=== PATIENT | male | born 1980 | race Caucasian/White ===

== ENCOUNTER 2018-07-02 13:52 | Emergency (ER) | payer OTHER ==
[2018-07-02 14:03] VITALS: BP 122/88; PULSE 85; TEMP 98.3; BMI 37.5
[2018-07-02] MEDS ORDERED: CYCLOBENZAPRINE HCL 10 MG TABLET (FP) PO ONE (14:34)
[2018-07-02] MEDS ORDERED: IBUPROFEN 600 MG TABLET (FP) PO ONE ×2 (14:36→14:39)
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
[2018-07-02] MEDS ORDERED: CYCLOBENZAPRINE HCL 10 MG TABLET (FP) ONE (14:39)
== END 2018-07-02 16:09 | disposition home or self-care (01) ==
LOC: JERFT 13:52
DX: S89.82XA Other specified injuries of left lower leg, initial encounter (principal); M25.572 Pain in left ankle and joints of left foot; M62.838 Other muscle spasm; M79.652 Pain in left thigh; M54.5 Low back pain; V03.10XA Pedestrian on foot injured in collision with car, pick-up truck or van in traffic accident, initial encounter; Y92.414 Local residential or business street as the place of occurrence of the external cause; Y93.89 Activity, other specified; Y99.8 Other external cause status
CPT/HCPCS: 73610-TC-LT-FY; 93971-TC; 99281-25

== ENCOUNTER 2018-11-01 11:10 | Emergency (ER) | payer OTHER ==
[2018-11-01 11:21] VITALS: BP 124/73; PULSE 87; TEMP 98.3; BMI 38.7
[2018-11-01] MEDS ORDERED: KETOROLAC TROMETHAMINE 60 MG/2 ML VIAL IM ONE (11:52)
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
[2018-11-01] MEDS ORDERED: KETOROLAC TROMETHAMINE 60 MG/2 ML VIAL ONE (12:10)
== END 2018-11-01 12:43 | disposition home or self-care (01) ==
LOC: JERFT 11:10
PROC: 3E0233Z Introduction of Anti-inflammatory into Muscle, Percutaneous Approach (ICD-10-PCS; principal; 2018-11-01)
DX: S39.012A Strain of muscle, fascia and tendon of lower back, initial encounter (principal); S29.012A Strain of muscle and tendon of back wall of thorax, initial encounter; S16.1XXA Strain of muscle, fascia and tendon at neck level, initial encounter; V47.5XXA Car driver injured in collision with fixed or stationary object in traffic accident, initial encounter; Y92.414 Local residential or business street as the place of occurrence of the external cause; Y93.89 Activity, other specified; Y99.8 Other external cause status
CPT/HCPCS: 99281-25

== ENCOUNTER 2018-12-05 23:38 | Emergency (ER) | payer OTHER ==
[2018-12-06 01:36] VITALS: BP 120/82; PULSE 94; TEMP 98.2; BMI 25.7
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
[2018-12-06] MEDS ORDERED: ACETAMINOPHEN 1000 MG/100 ML VIAL (NON FORMULARY) IVPB ONE (02:24)
[2018-12-06 02:48] LABS: BASO % 0.6 % (0-2.0); EOS % 2.8 % (0-4.5); HEMATOCRIT 41.4 % (35.4-49); HEMOGLOBIN 14.5 GM/dL (11.7-16.9); LYMPH % 38.7 % (8-40); MCH 30.1 pg (25.7-33.7); MCHC 35.1 g/dl (32.0-35.9); MEAN CELL VOLUME 85.8 fl (80-96); MEAN PLT VOLUME 7.1 fl (7.5-11.1); MONO % 7.4 % (3.8-10.2); NEUT % 50.5 % (42.8-82.8); PLATELET COUNT 301 K/MM3 (134-434); RBC 4.82 M/mm3 (4.00-5.60); RDW 13.4 % (11.9-15.9); WHITE BLOOD COUNT 7.5 K/mm3 (4.0-10.0)
[2018-12-06] MEDS ORDERED: ACETAMINOPHEN INJECTION 100 ML IVPB ONE (03:14)
[2018-12-06 03:17] LABS: ALBUMIN 3.8 g/dl (3.4-5.0); ALK PHOS 84 U/L (45-117); ANION GAP 4 MMOL/L (8-16); BILIRUBIN,TOTAL 0.6 mg/dL (0.2-1); BLOOD UREA NITROGEN 23 mg/dL (7-18); CALCIUM 8.7 mg/dL (8.5-10.1); CHLORIDE 106 mmol/L (98-107); CO2 29 mmol/L (21-32); CREATININE 0.9 mg/dL (0.55-1.3); GLUCOSE,RANDOM 157 mg/dL (74-106); MAGNESIUM 2.1 mg/dL (1.8-2.4); PHOSPHOROUS 3.9 mg/dL (2.5-4.9); POTASSIUM 4.2 mmol/L (3.5-5.1); SGOT/AST 29 U/L (15-37); SGPT/ALT 78 U/L (13-61); SODIUM 139 mmol/L (136-145); TOT PROT 7.2 g/dl (6.4-8.2)
--- NOTE | 2018-12-06 10:41 | EKG ---
Test Reason : Blood Pressure : / mmHG Vent. Rate : 093 BPM Atrial Rate : 093 BPM P-R Int : 148 ms QRS Dur : 082 ms QT Int : 354 ms P-R-T Axes : 009 037 -04 degrees QTc Int : 440 ms NORMAL SINUS RHYTHM NONSPECIFIC T WAVE ABNORMALITY ABNORMAL ECG WHEN COMPARED WITH ECG OF 23-JUN-2014 07:37, NO SIGNIFICANT CHANGE WAS FOUND Confirmed by Calderon Mcintosh MD ([id number]) on 12/06/2018 10:40:55 AM Referred By: Confirmed By:Calderon Mcintosh MD
== END 2018-12-06 04:35 | disposition home or self-care (01) ==
LOC: JER 23:38
DX: R07.9 Chest pain, unspecified (principal)
CPT/HCPCS: 36415; 71046-TC-FY; 80053; 82550; 82553; 83735; 84100; 84484; 85025; 85379; 93005; 93010; 99284-25; J0131

== ENCOUNTER 2020-03-13 20:15 | Emergency (ER) | payer OTHER ==
[2020-03-13] MEDS ORDERED: KETOROLAC TROMETHAMINE 30 MG/1 ML VIAL IM ONE (20:30)
--- NOTE | 2020-03-13 20:30 | PDOC ---
Rapid Medical Evaluation Chief Complaint: Pain, Acute Time Seen by Provider: 03/13/20 20:24 Medical Evaluation: Allergies Allergy/AdvReac Type Severity Reaction Status Date / Time No Known Allergies Allergy Verified 12/06/18 01:34 03/13/20 20:24 40 year old male R hand dominant pmhx DM HTN complaining of R UE pain after heavy lifting. Pt states he lifted a whitewasher and heard/felt a pop in his arm. Pt complaining of pain when pronating supinating flexing PE: emigdio sign ttp over biceps insertion FROM to elbow extension, wrist flexion and extension, pain on pronation supination, unable to flexat elbow. Plan Toradol Shorty wrap Ortho f/u Pt to precede to ED
[2020-03-13 20:33] VITALS: BP 119/90; PULSE 99; TEMP 98.5; BMI 39.1
[2020-03-13] MEDS ORDERED: KETOROLAC TROMETHAMINE 30 MG/1 ML VIAL ONE (20:48)
--- NOTE | 2020-03-13 20:55 | PDOC ---
History of Present Illness - General Chief Complaint: Pain, Acute Stated Complaint: RIGHT ARM PAIN Time Seen by Provider: 03/13/20 20:24 - History of Present Illness Initial Comments: 03/13/20 20:53 40-year-old male presents for evaluation of right elbow pain after picking up heavy washer blanket. Past History - Medical History Allergies/Adverse Reactions: Allergies Allergy/AdvReac Type Severity Reaction Status Date / Time No Known Allergies Allergy Verified 03/13/20 20:28 Home Medications: Ambulatory Orders NK [No Known Home Medication] 12/06/18 Asthma: Yes COPD: No - Immunization History Immunization Up to Date: Yes - Psycho-Social/Smoking History Smoking History: Current some day smoker Have you smoked in the past 12 months: No Number of Cigarettes Smoked Daily: 4 Information on smoking cessation initiated: Yes 'Breaking Loose' booklet given: 07/02/18 - Substance Abuse Hx (Audit-C & DAST Scrn) How often the patient has a drink containing alcohol: Monthly or less Score: In Men: 4 or > Positive; In Women: 3 or > Positive: 1 Screen Result (Pos requires Nsg. Audit-10AR): Negative In the last yr the pt used illegal drug/Rx for NonMed reason: No Score: Yes response is considered Positive: 0 Screen Result (Positive result requires Nsg. DAST-10): Negative Review of Systems - Review of Systems Musculoskeletal: Yes: Joint Pain *Physical Exam - Vital Signs Last Vital Signs Temp Pulse Resp BP Pulse Ox 98.5 F 99 H 20 119/90 98 03/13/20 20:23 03/13/20 20:23 03/13/20 20:23 03/13/20 20:23 03/13/20 20:23 - Physical Exam 03/13/20 20:53 Right elbow skin color and temperature normal. Range of motion is decreased in flexion. Patient holds his elbow in extension. 2 out of 5 strength with supination 4 out of 5 with elbow flexion 5 out of 5 with pronation and extension. No gross sensorimotor deficits tenderness at the area of the distal biceps otherwise neurovascular intact with soft compartments. ED Treatment Course - RADIOLOGY Radiology Studies Ordered: Category Date Time Status ELBOW-RIGHT [RAD] Stat Radiology 03/13/20 20:35 Taken Medical Decision Making - Medical Decision Making 03/13/20 20:54 X-ray show no evidence of fracture trauma or destructive process. This is a distal bicep tendon rupture. Follow-up with Ortho sling for comfort Tylenol for pain. Avoid anti-inflammatories as this is a presurgical injury. I have reviewed the pathophysiology with the patient. They are in agreement with the treatment plan all questions were answered to their satisfaction. Understanding for follow-up without fail was also conveyed to the patient. Again they are in agreement. Discharge - Discharge Information Problems reviewed: Yes Clinical Impression/Diagnosis: Rupture of distal biceps tendon Condition: Stable Disposition: HOME - Admission No - Follow up/Referral Referrals: Valentin Stuart [Primary Care Provider] - Les Collier DO [Staff Physician] - - Patient Discharge Instructions Additional Instructions: Please use the sling for comfort. Without fail follow-up with orthopedic surgery in 1 to 2 days for further evaluation and treatment options. This injury requires surgical intervention. Avoid anti-inflammatories such as Advil Motrin Aleve and ibuprofen and please take the Tylenol as directed for pain. Return to the emergency room for further issues. - Post Discharge Activity
== END 2020-03-13 21:03 | disposition home or self-care (01) ==
LOC: JER 20:15
PROC: 3E023GC Introduction of Other Therapeutic Substance into Muscle, Percutaneous Approach (ICD-10-PCS; principal; 2020-03-13)
DX: S46.291A Other injury of muscle, fascia and tendon of other parts of biceps, right arm, initial encounter (principal); X50.0XXA Overexertion from strenuous movement or load, initial encounter
CPT/HCPCS: 73070-TC-RT-FY; 99284-25

== ENCOUNTER 2021-02-25 11:00 | Emergency (ER) | payer OTHER ==
[2021-02-25 11:10] VITALS: BMI 39.5
[2021-02-25] MEDS ORDERED: SODIUM CHLORIDE 0.9% 500 ML INFUS.BAG IV ONE (12:16)
[2021-02-25] MEDS ORDERED: ACETAMINOPHEN 500 MG TABLET (FP) PO ONE (12:16)
[2021-02-25] MEDS ORDERED: ACETAMINOPHEN 325 MG TABLET (FP) ONE (13:21)
[2021-02-25 14:03] LABS: BASO % 0.4 % (0-2.0); HEMOGLOBIN 16.5 GM/dL (11.7-16.9); LYMPH % 9.4 % (8-40); MCH 28.9 pg (25.7-33.7); MCHC 34.3 g/dl (32.0-35.9); MEAN CELL VOLUME 84.5 fl (80-96); MEAN PLT VOLUME 7.1 fl (7.5-11.1); MONO % 6.5 % (3.8-10.2); NEUT % 83.7 % (42.8-82.8); PLATELET COUNT 278 K/MM3 (134-434); RBC 5.69 M/mm3 (4.00-5.60); RDW 13.1 % (11.9-15.9)
[2021-02-25 14:17] LABS: INR 1.25 (0.83-1.09)
[2021-02-25 14:18] LABS: VENOUS O2 SATURATION 37.2 % (70-80); VENOUS PCO2 43.3 mmHg (38-52); VENOUS PH 7.427 (7.310-7.410)
[2021-02-25 14:27] LABS: CHLORIDE 98 mmol/L (98-107); SODIUM 133 mmol/L (136-145)
[2021-02-25 14:29] LABS: CALCIUM 9.2 mg/dL (8.5-10.1)
[2021-02-25 14:30] LABS: ALBUMIN 4.1 g/dl (3.4-5.0); ANION GAP 8 MMOL/L (8-16); BLOOD UREA NITROGEN 12.3 mg/dL (7-18); CO2 28 mmol/L (21-32); GLUCOSE,RANDOM 142 mg/dL (74-106)
[2021-02-25 14:32] LABS: BILIRUBIN,DIRECT 0.4 mg/dL (0.0-0.2)
[2021-02-25 14:33] LABS: CREATININE 1.2 mg/dL (0.55-1.3); SGOT/AST 21 U/L (15-37); SGPT/ALT 52 U/L (13-61)
[2021-02-25 14:34] LABS: BILIRUBIN,TOTAL 1.8 mg/dL (0.2-1); TOT PROT 8.3 g/dl (6.4-8.2)
[2021-02-25 14:35] LABS: ALK PHOS 86 U/L (45-117)
[2021-02-25 14:37] LABS: LDH 221 U/L (87-246)
[2021-02-25 14:57] LABS: ANISOCYTOSIS 0; MACROCYTOSIS 0; PLATELET ESTIMATE NORMAL
[2021-02-25] MEDS ORDERED: PENICILLIN G BENZATHINE 1,200,000 UNIT/2 ML PFS IM ONE ×2 (16:07→16:51)
[2021-02-25 16:54] LABS: EPI CELLS 6 /uL (0-25.1); HYALINE CASTS 0 /uL (0-3.1); URINE APPEARANCE CLEAR; URINE BACTERIA 13 /uL (0-1359); URINE BILIRUBIN NEGATIVE (NEGATIVE); URINE COLOR YELLOW; URINE GLUCOSE (UA) 3+ (NEGATIVE); URINE KETONE TRACE (NEGATIVE); URINE LEUK ESTERASE NEGATIVE (NEGATIVE); URINE NITRITE NEGATIVE (NEGATIVE); URINE PROTEIN NEGATIVE (NEGATIVE); URINE RBC 80 /uL (0-23.9); URINE WBC 3 /uL (0-25.8)
[2021-02-25 17:09] VITALS: BP 106/69; PULSE 96; TEMP 98.1
== END 2021-02-25 17:26 | disposition home or self-care (01) ==
LOC: JER 11:00
DX: R50.9 Fever, unspecified (principal); J02.0 Streptococcal pharyngitis
CPT/HCPCS: 36415; 71045-TC-FY; 80053; 81003; 82248; 82550; 82553; 82728; 82803; 83605; 83615; 84484; 85025; 85610; 85730; 86140; 87040; 87086; 87804; 87880; 93005; 93010; 99285-25; C9803; U0003; U0005